=== PATIENT | male | born 1950 | race Caucasian/White ===

== ENCOUNTER 2020-04-03 10:48 | Emergency (ER) | payer OTHER ==
[2020-04-03] MEDS ORDERED: ONDANSETRON 4 MG/2 ML VIAL ONE (12:35)
[2020-04-03 12:41] LABS: Absolute Lymphocytes (CBC) 1.5 K/uL (0.7-4.9); Basophils % 0.6 % (0-1.3); Hematocrit 42.9 % (39.6-49.0); Lymphocytes % 15.7 % (15.3-44.8); RBC Red Blood Cell Count 4.88 M/uL (4.33-5.43)
[2020-04-03 12:57] LABS: ALT/SGPT 20 U/L (12-78); AST/SGOT 21 U/L (15-37); Albumin 3.7 g/dL (3.4-5.0); Alkaline Phosphatase 87 U/L (45-117); BUN Blood Urea Nitrogen 25 mg/dL (7-18); Bicarbonate 28 mmol/L (21-32); Bilirubin Direct < 0.1 mg/dL (0-0.2); Bilirubin Total 0.3 mg/dL (0.2-1.0); Glucose Level 99 mg/dL (74-106); Lipase 345 U/L (73-393); Potassium 4.4 mmol/L (3.5-5.1); Protein, Total 7.9 g/dL (6.4-8.2); Sodium Level 140 mmol/L (136-145)
--- NOTE | 2020-04-03 13:40 | RAD REPORT ---
EXAM DESCRIPTION: CT - Abdomen Pelvis W Contrast - 04/03/2020 1:25 pm CLINICAL HISTORY: Abdominal pain COMPARISON: none. TECHNIQUE: Computed axial tomography of the abdomen pelvis was obtained. 100 cc Isovue-300 was admin istered intravenously. Oral contrast was not requested which limits evaluation of bowel. All CT scans are performed using dose optimization technique as appropriate and may include automated exposure control or mA/KV adjustment according to patient size. FINDINGS: The liver, pancreas, adrenal and kidneys appear unremarkable. There is no evidence of diverticulitis. Spondylosis involves the lumbar spine resulting marked spinal stenosis Mild posterior subluxation of L5 on S1 with marked disc space narrowing and subchondral sclerosis and osteophytes. Infrarenal abdominal aortic aneurysm has an AP diameter 3.7 centimeters. A a moderate to large amount of thrombus is present within the lower abdominal aorta. Atherosclerotic disease is present. The prostate gland is heterogeneous and mildly enlarged. Diverticulosis without diverticulitis. Small hiatal hernia IMPRESSION: 3.7 centimeter infrarenal abdominal aortic aneurysm containing a moderate to large amoun t thrombus Heterogeneous prostate gland with a prominent nodule extending off of posteroinferior left aspect. Th is may indicate neoplasm. This should be correlated with appropriate lab values. An MRI the prostate gland with a dedicated rectal coil may also be helpful.
--- NOTE | 2020-04-03 13:41 | RAD REPORT ---
EXAM DESCRIPTION: E[place] Single View04/03/2020 1:12 pm CLINICAL HISTORY: Chest pain COMPARISON: none FINDINGS: The lungs are hyperaerated The lungs appear clear of acute infiltrate. The heart is normal size IMPRESSION: No acute abnormalities displayed
--- NOTE | 2020-04-03 14:46 | ER ---
Nurse's Notes [facility] Name: Linsey Rios Age: 69 yrs Sex: Male : 1950 Arrival Date: 04/03/2020 Time: 10:59 Bed 23 Private MD: Diagnosis: Nausea Presentation: 04/03 11:20 Chief complaint: Patient states: nausea x 2 months ago. Pt denies vomiting, denies abd aa5 pain. Pt states "My stomach just feels sick". Pt also c/o right subscapular pain. 11:20 Coronavirus screen: Patient denies a cough. Patient denies shortness of breath or aa5 difficulty breathing. Patient denies measured and/or subjective temperature greater than 100.4F prior to today's visit. Patient denies travel on a cruise ship or to a country the [facility] currently lists as an affected area. Patient denies contact with known and/or suspected case of COVID-19. Proceed with normal triage. Ebola Screen: Patient negative for fever greater than or equal to 101.5 degrees Fahrenheit, and additional compatible Ebola Virus Disease symptoms. Initial Sepsis Screen: Does the patient meet any 2 criteria? No. Patient's initial sepsis screen is negative. Does the patient have a suspected source of infection? No. Patient's initial sepsis screen is negative. Risk Assessment: Do you want to hurt yourself or someone else? Patient reports no desire to harm self or others. Onset of symptoms was March 2020. 11:20 Acuity: ELZBIETA 3 aa5 11:20 Method Of Arrival: Wheelchair aa5 Triage Assessment: 14:54 General: Appears in no apparent distress. Pain: Denies pain. GI: Abdomen is flat, Bowel ll1 sounds present X 4 quads. Abd is soft and non tender X 4 quads. Reports nausea. Historical: - Allergies: 11:26 No Known Allergies; aa5 - PMHx: 11:26 Hypertension; aa5 - PSHx: 11:26 None; aa5 - Immunization history:: Adult Immunizations unknown. - Social history:: Smoking status: Patient reports the use of cigarette tobacco products, smokes three packs cigarettes per day. Screenin:00 Abuse screen: Denies threats or abuse. Nutritional screening: No deficits noted. ll1 Tuberculosis screening: No symptoms or risk factors identified. Fall Risk No fall in past 12 months (0 pts). IV access (20 points). Total Mcclain Fall Scale indicates No Risk (0-24 pts). Assessment: 11:59 General: Appears in no apparent distress. Behavior is calm, cooperative. GI: Abdomen is ll1 flat, Bowel sounds present X 4 quads. Abd is soft and non tender X 4 quads. Reports nausea. Musculoskeletal: Circulation, motion, and sensation intact. Capillary refill < 3 seconds, Range of motion: intact in all extremities. 13:00 Reassessment: Patient appears in no apparent distress at this time. No changes from ll1 previously documented assessment. Patient and/or family updated on plan of care and expected duration. Pain level reassessed. Patient is alert, oriented x 3, equal unlabored respirations, skin warm/dry/pink. 14:00 Reassessment: Patient appears in no apparent distress at this time. No changes from ll1 previously documented assessment. Patient and/or family updated on plan of care and expected duration. Pain level reassessed. Patient is alert, oriented x 3, equal unlabored respirations, skin warm/dry/pink. Vital Signs: 11:20 BP 150 / 75; Pulse 79; Resp 18 S; Temp 98.4(O); Pulse Ox 99% on R/A; Weight 74.84 kg aa5 (R); Height 5 ft. 11 in. (180.34 cm) (R); Pain 5/10; 13:30 BP 179 / 92; Pulse 68; Resp 18; Pulse Ox 95% ; ll1 14:09 BP 170 / 88; Pulse 58; Resp 18; Pulse Ox 98% ; ll1 11:20 Body Mass Index 23.01 (74.84 kg, 180.34 cm) aa5 ED Course: 10:59 Patient arrived in ED. fj1 11:20 Arm band placed on. aa5 11:25 Triage completed. aa5 11:41 Mayela Salgado [facility]NP[facility]C [facility]. kb 11:41 Segun Samano MD is Attending Physician. kb 11:56 Cuate Acevedo, LUCIA is Primary Nurse. ll1 12:00 Patient has correct armband on for positive identification. Bed in low position. Call ll1 light in reach. Side rails up X 1. 12:16 Inserted saline lock: 22 gauge in left antecubital area, using aseptic technique. Blood ll1 collected. 13:13 Chest Single View XRAY In Process Unspecified. EDMS 13:26 CT Abd/Pelvis - IV Contrast Only In Process Unspecified. EDMS 14:53 IV discontinued, intact, bleeding controlled, No redness/swelling at site. Pressure ll1 dressing applied. 14:54 No provider procedures requiring assistance completed. ll1 Administered Medications: 12:39 Drug: Zofran (Ondansetron) 4 mg Route: IVP; Site: left antecubital; ll1 14:53 Follow up: Response: No adverse reaction; Nausea is decreased; RASS: Alert and Calm (0) ll1 Outcome: 14:46 Discharge ordered by . kb 14:54 Discharged to home ambulatory. ll1 14:54 Condition: stable 14:54 Discharge instructions given to patient, Instructed on discharge instructions, follow up and referral plans. medication usage, Demonstrated understanding of instructions, follow-up care, medications, Prescriptions given X 1. 14:54 Patient left the ED. ll1 Signatures: Dispatcher [employer] EDMS Mayela Salgado, TELEPHONE CLERKS SUPERVISOR-C TELEPHONE CLERKS SUPERVISOR-Mikaela Clark, RN RN aa5 Ryan Rush fj1 Cuate Acevedo, RN RN ll1
--- NOTE | 2020-04-03 14:47 | EDPHYS ---
Physician Documentation [facility] Name: Linsey Rios Age: 69 yrs Sex: Male : 1950 Arrival Date: 04/03/2020 Time: 10:59 Bed 23 Private MD: ED Physician Segun Samano HPI: 04/03 14:44 This 69 yrs old Male presents to ER via Wheelchair with complaints of kb Shoulder Pain, Nausea. 14:45 The patient presents to the emergency department with nausea. Onset: The kb symptoms/episode began/occurred 2 month(s) ago. Possible causes: unknown. The symptoms are aggravated by nothing. The symptoms are alleviated by nothing. Associated signs and symptoms: Pertinent positives: nausea, Pertinent negatives: abdominal pain, anorexia, belching, constipation, diarrhea, dysuria, fever, flatulence, GI bleeding, hematuria, vomiting. Severity of symptoms: At their worst the symptoms were moderate in the emergency department the symptoms are unchanged. The patient has not experienced similar symptoms in the past. The patient has not recently seen a physician. Pt reports nausea for 2 months. Denies any other symptoms. Historical: - Allergies: 11:26 No Known Allergies; aa5 - PMHx: 11:26 Hypertension; aa5 - PSHx: 11:26 None; aa5 - Immunization history:: Adult Immunizations unknown. - Social history:: Smoking status: Patient reports the use of cigarette tobacco products, smokes three packs cigarettes per day. ROS: 14:43 Constitutional: Negative for fever, chills, and weight loss, Cardiovascular: Negative kb for chest pain, palpitations, and edema, Respiratory: Negative for shortness of breath, cough, wheezing, and pleuritic chest pain, Back: Negative for injury and pain, MS/Extremity: Negative for injury and deformity, Skin: Negative for injury, rash, and discoloration, Neuro: Negative for headache, weakness, numbness, tingling, and seizure. 14:43 Abdomen/GI: Positive for nausea, Negative for abdominal pain, vomiting, diarrhea, constipation. Exam: 14:43 Constitutional: This is a well developed, well nourished patient who is awake, alert, kb and in no acute distress. Head/Face: Normocephalic, atraumatic. Chest/axilla: Normal chest wall appearance and motion. Nontender with no deformity. No lesions are appreciated. Cardiovascular: Regular rate and rhythm with a normal S1 and S2. No gallops, murmurs, or rubs. Normal PMI, no JVD. No pulse deficits. Respiratory: Lungs have equal breath sounds bilaterally, clear to auscultation and percussion. No rales, rhonchi or wheezes noted. No increased work of breathing, no retractions or nasal flaring. Abdomen/GI: Soft, non-tender, with normal bowel sounds. No distension or tympany. No guarding or rebound. No evidence of tenderness throughout. Back: No spinal tenderness. No costovertebral tenderness. Full range of motion. Skin: Warm, dry with normal turgor. Normal color with no rashes, no lesions, and no evidence of cellulitis. MS/ Extremity: Pulses equal, no cyanosis. Neurovascular intact. Full, normal range of motion. Neuro: Awake and alert, GCS 15, oriented to person, place, time, and situation. Cranial nerves II-XII grossly intact. Motor strength 5/5 in all extremities. Sensory grossly intact. Cerebellar exam normal. Normal gait. Vital Signs: 11:20 BP 150 / 75; Pulse 79; Resp 18 S; Temp 98.4(O); Pulse Ox 99% on R/A; Weight 74.84 kg aa5 (R); Height 5 ft. 11 in. (180.34 cm) (R); Pain 5/10; 13:30 BP 179 / 92; Pulse 68; Resp 18; Pulse Ox 95% ; ll1 14:09 BP 170 / 88; Pulse 58; Resp 18; Pulse Ox 98% ; ll1 11:20 Body Mass Index 23.01 (74.84 kg, 180.34 cm) aa5 MDM: 11:41 Patient medically screened. kb 14:43 Data reviewed: vital signs, nurses notes. Data interpreted: Pulse oximetry: on room air kb is 98 %. Interpretation: normal. Counseling: I had a detailed discussion with the patient and/or guardian regarding: the historical points, exam findings, and any diagnostic results supporting the discharge/admit diagnosis, the need for outpatient follow up, a family practitioner, to return to the emergency department if symptoms worsen or persist or if there are any questions or concerns that arise at home. 04/03 12:24 Order name: Basic Metabolic Panel; Complete Time: 12:57 kb 04/03 12:24 Order name: CBC with Diff; Complete Time: 12:49 kb 04/03 12:24 Order name: Hepatic Function; Complete Time: 12:57 kb 04/03 12:24 Order name: Lipase; Complete Time: 12:57 kb 04/03 12:24 Order name: Chest Single View XRAY; Complete Time: 13:44 kb 04/03 14:16 Order name: Urine Dipstick--Ancillary (enter results) bd 04/03 12:24 Order name: IV Saline Lock; Complete Time: 12:24 kb 04/03 12:24 Order name: Labs collected and sent; Complete Time: 12:24 kb 04/03 13:05 Order name: CT Abd/Pelvis - IV Contrast Only; Complete Time: 14:14 kb Administered Medications: 12:39 Drug: Zofran (Ondansetron) 4 mg Route: IVP; Site: left antecubital; ll1 14:53 Follow up: Response: No adverse reaction; Nausea is decreased; RASS: Alert and Calm (0) ll1 Disposition: 17:37 Co-signature as Attending Physician, Segun Samano MD. rn Disposition: 04/03/20 14:46 Discharged to Home. Impression: Nausea. - Condition is Stable. - Discharge Instructions: Nausea, Adult, [id number]. - Prescriptions for Zofran 4 mg Oral Tablet - take 1 tablet by ORAL route every 6 hours As needed; 20 tablet. - Medication Reconciliation Form, Thank You Letter, Antibiotic Education, Prescription Opioid Use form. - Follow up: Emergency Department; When: As needed; Reason: Worsening of condition. Follow up: Private Physician; When: 2 - 3 days; Reason: Recheck today's complaints, Continuance of care, Re-evaluation by your physician. - Notes: Take a baby aspirin daily (81mg) Follow up with Dr Yony Guadalupe in [place] for AAA. His office number is Signatures: Dispatcher [employer] Mayela Parker, MILLER ROD MILL-C MILLER ROD MILL-CkSegun Mejias MD MD rn Calderon, Audri, RN RN aa5 Cuate Acevedo RN RN ll1 Corrections: (The following items were deleted from the chart) 14:54 14:46 04/03/2020 14:46 Discharged to Home. Impression: Nausea. Condition is Stable. ll1 Forms are Medication Reconciliation Form, Thank You Letter, Antibiotic Education, Prescription Opioid Use. Follow up: Emergency Department; When: As needed; Reason: Worsening of condition. Follow up: Private Physician; When: 2 - 3 days; Reason: Recheck today's complaints, Continuance of care, Re-evaluation by your physician. kb
[2020-04-03 16:19] LABS: Urine Blood TRACE (NEG); Urine Glucose NEGATIVE (NEG); Urine Protein NEGATIVE (NEG); Urine Specific Gravity 1.015 (1.005-1.030); Urine pH 5.5 (5.0-7.0)
== END 2020-04-03 14:54 | disposition home or self-care (01) ==
LOC: ER 10:48
DX: R11.0 Nausea (principal); F17.210 Nicotine dependence, cigarettes, uncomplicated
CPT/HCPCS: 85025; 80048; 36415; 80076; 81003; 83690; 74177; 71045; 96374; 99284; Q9967; J2405